=== PATIENT | female | born 1965 | race Asian ===

== ENCOUNTER 2016-09-15 20:14 | Emergency (ER) | payer MEDICAID, OTHER ==
[~2016-09-15] VITALS: Ht 170.2 cm; Wt 68.0 kg
[2016-09-15 20:17] VITALS: Ht 170.2 cm; Wt 68.0 kg
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
[2016-09-15] MEDS ORDERED: CYCL5TAB PO (22:39)
[2016-09-15] MEDS ORDERED: IBUP-1542 PO (22:39)
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
--- NOTE | 2016-09-15 23:55 | RADRPT ---
PROCEDURE: XR Lumbar Spine. CLINICAL INDICATION: Lumbar spine pain. TECHNIQUE: AP, lateral, and cone-down lateral view of the lumbar spine were obtained. COMPARISON: No prior studies are available for comparison. FINDINGS: The alignment of the lumbar spine is within normal limits. There are anterior osteophytes from L4-S 1 with mild to moderate narrowing of the intervertebral disc spaces at L5-S1. There are mild associ ated discogenic endplate changes at this level. The vertebral body heights and marrow density are no rmal in appearance. There is moderate facet spondylosis at L4-5 and L5-S1 with suggestion of neural foraminal narrowing at L5-S1. The remaining neural foramina appear patent. The paraspinal soft ti ssues unremarkable. There is no evidence of fracture. IMPRESSION: 1. Mild to moderate degenerative disc disease at L5-S1. 2. Moderate facet spondylosis at L4-5 and L5-S1 with suggestion of neural foraminal narrowing at L5 -S1. 3. No evidence of fracture. RPTAT: HGAS .Mark Santos MD, Date Time Electronically viewed and signed by .Mark Santos MD, on 09/15/2016 23:54 .S/
[2016-09-16 00:36] VITALS: BP 132/80; PULSE 84; RESP 20; TEMP 98
== END 2016-09-16 00:37 | disposition home or self-care (01) ==
LOC: FTE 20:14
DX: S33.5XXA Sprain of ligaments of lumbar spine, initial encounter (principal); S93.402A Sprain of unspecified ligament of left ankle, initial encounter; R51 Headache; V49.40XA Driver injured in collision with unspecified motor vehicles in traffic accident, initial encounter
CPT/HCPCS: 70450; 72040; 72072; 72100; 73562; 73610; 73630; Z7502